=== PATIENT | male | born 1940 ===

== ENCOUNTER 2025-05-11 15:56 | Outpatient (AMB) | payer OTHER, SELFPAY ==
--- NOTE | 2025-05-11 16:01 | A.OFFVIS_ITS ---
Vital Signs 05/11/25 16:05 Height 5 ft 4 in Intake Visit Reasons: 6 mnts BFT Accompanied by: Spouse Allergies No Known Allergies Allergy (Verified 05/11/25 16:10) Medication List - Last Reconciled 05/11/25 by Sabine Fierro CNP empagliflozin (Jardiance) 10 mg PO DAILY glipizide 5 mg PO QAM lisinopril 10 mg PO DAILY metformin 1,000 mg PO BID propranolol 80 mg PO BID simvastatin 20 mg PO QPM HPI Comments Details: 85-year-old man with tremors. He had tremors in his hands for more than 30 years and started with [id number] head tremor around 2023. His father also had tremors. Tremors were about the same. No significant functional impairment. No difficulty eating. He occasionally had to hold cup steady with both hands. Shaking was worse if he was nervous or stressed. He was having some trouble swallowing and had testing done earlier this month at [facility] which was apparently okay. No falls. [facility] Medical History (Updated 05/11/25 @ 16:04 by Sabine Fierro CNP) Benign familial tremor Review of Systems Const Denies chills, Denies daytime sleepiness, Denies difficulty sleeping, Denies fatigue, Denies fever(s), Denies frequent falls, Denies headache(s), Denies increased appetite, Denies poor appetite, Denies snoring, Denies weakness, Denies weight gain and Denies weight loss Eyes Denies loss of vision ENT Denies vertigo, Denies dizziness, Denies headache(s) and Denies neck pain Card Denies chest pain at rest, Denies chest pain with activity, Denies syncope, Denies leg edema, Denies palpitations, Denies dyspnea and Denies dyspnea on exertion Resp Denies cough, Denies dyspnea, Denies dyspnea on exertion and Denies snoring GI Denies abdominal pain, Denies constipation, Denies heartburn, Denies diarrhea and Denies nausea Denies urinary frequency, Denies urinary incontinence and Denies urinary urgency Musc Denies abnormal gait, Denies back pain, Denies myalgias, Denies arthralgias, Denies neck pain, Denies numbness and Denies tingling Neuro Denies abnormal gait, Denies vertigo, Denies dizziness, Denies syncope, Denies frequent falls, Denies headache(s), Denies lack of coordination, Denies loss of vision, Denies memory loss, Denies numbness, Denies Other visual disturbances, Denies restless legs, Denies seizure-like activity, Denies tingling, Denies paresthesias, Reports tremor(s) and Denies weakness Psych Denies anxiety, Denies depression, Denies auditory hallucinations, Denies memory loss and Denies visual hallucinations Endo Denies fatigue and Denies palpitations Physical Exam Const Other: General Appearance:? normal, in no acute distress. Heart:? S1, S2 normal, no murmurs. Lungs:? clear anteriorly and posteriorly. Musculoskeletal:? normal. Extremities:? no edema. Psych:? alert, oriented, cognitive function intact, cooperative with exam. Neuro Other: Abnormal Neurological Findings:?Mild head titubation tremor.?No rest tremor.?Moderate tremor of the upper extremities when held in an extended position.?Fast frequency with medium amplitude tremor right more than left, increased by [id number] test. Mental Status: alert and oriented X 3. Normal attention, orientation, memory, and affect. Cranial Nerves: Pupils are equal, round, and reactive to light. External ocular muscles are intact. Visual nicolas are full, no ptosis. Face is symmetrical, no facial weakness or droop. Facial sensations are normal. Tongue protrudes in midline. Palate elevates symmetrically. Shoulder shrugging is normal Motor Examination: Normal muscle tone, bulk and strength. No atrophy or fasciculations. No drift of the extended upper extremities. DTR 2+. Plantars are flexor. Sensory Exam: Normal light touch, temperature, pinprick, vibration, and joint- position sensations. Rhomberg sign is absent. Gait Exam: Within normal limits. Cerebellar Signs: [id number] as above. Extrapyramidal System: Tremor as above. rigidity with normal facial expressions. No bradykinesia. No bradyphrenia. Normal arm swing and posture. No propulsion or retropulsion. Speech: Normal. No dysphasia or dysarthria. 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 Plan Meds tried: primidone (side effects) Medications: New propranolol 80 mg PO BID 180 tabs 1RF 90 days Discontinued propranolol Discontinued Reason: Order 80 mg PO BID Coding Level of Care Code Est Pt Level 3 (87247) Diagnoses Benign familial tremor G25.0
--- OUTSIDE RECORDS SUMMARY | 2025-05-11 16:35 | XMS_ITS | Clinical Summary ---
Author Organization [address] [facility] Address [address] [place] [address] Phone Care Team Providers Care Email Engineer Name Role Phone Ben Wylie DO Primary Care Provider [phone] Encounters Date Type Department Care Team Description 04/07/2025 7:00 AM EDT Ancillary Procedure [facility] [address] [place] [id number] Ascending aorta dilation (CMS/HCC V24) from Last 3 Months Social History Tobacco Use Types Packs/Day Years Used Date Smoking Tobacco: Never Assessed Sex and Gender Information Value Date Recorded Sex Assigned at Not on file Legal Sex Male 4:20 AM EST Gender Identity Not on file Sexual Orientation Not on file Last Filed Vital Signs Vital Sign Reading Time Taken Comments Blood Pressure 180/90 04/07/2025 7:33 AM EDT Pulse - - Temperature - - Respiratory Rate - - Oxygen Saturation - - Inhaled Oxygen Concentration - - Weight 70.3 kg (155 lb) 04/07/2025 7:33 AM EDT Height 165.1 cm (5' 5 ) 04/07/2025 7:33 AM EDT Body Mass Index 25.79 04/07/2025 7:33 AM EDT Plan of Treatment Health Maintenance Due Date Last Done Comments Diabetes: Annual Foot Exam 01/22/1950 Diabetes: Annual Retina Eye Exam 01/22/1950 DTaP,Tdap,and Td Vaccines (1 - Tdap) 1961 Pneumococcal Vaccine: 50+ Years (1 of 2 - PCV) 1961 Zoster Vaccines (1 of 2) 1961 RSV Immunization Adult Patients (1 - 1-dose 75+ series) 2017 Falls Risk Assessment 10/04/2022 Medicare Annual Wellness Visit 10/04/2022 Social Influencers of Health Screening 10/04/2022 Depression Screening 10/21/2024 COVID-19 Vaccine (8 - Pfizer risk season) 2024 06/21/2024, 08/03/2023, 10/01/2022, Additional history exists Diabetes: Annual Urine Albumin-Creatinine Ratio (uACR) 04/22/2025 Influenza Vaccine (#1) 2025 , 08/15/2023, 08/13/2022, Additional history exists Diabetes: Blood Sugar Control Test (HGBA1C) 10/22/2025 04/21/2025, 12/08/2024 Diabetes: Annual GFR (Glomerular Filtration Rate) 04/21/2026 04/21/2025, 12/08/2024, 09/11/2024 Hypertension/CHF/CAD Annual BMP Blood Test 04/21/2026 04/21/2025, 12/08/2024, 09/11/2024 Cholesterol Screening (Lipid Panel) 04/21/2030 04/21/2025, 12/08/2024 HIB Vaccines Aged Out No longer eligi ble based on patient's age to complete this topic HPV Vaccines Aged Out No longer eligi ble based on patient's age to complete this topic Hepatitis A Vaccines Aged Out No long er eligible based on patient's age to complete this topic Hepatitis B Vaccines Aged Out No long er eligible based on patient's age to complete this topic IPV Vaccines Aged Out No longer eligi ble based on patient's age to complete this topic MMR Vaccines Aged Out No longer eligi ble based on patient's age to complete this topic Meningococcal ACWY Vaccine Aged Out N o longer eligible based on patient's age to complete this topic Meningococcal B Vaccine Aged Out No l onger eligible based on patient's age to complete this topic RSV Immunization Patients Under 20 months Aged Out No longer eligible based on patient's age to complete this topic Varicella Vaccines Aged Out No longer eligible based on patient's age to complete this topic Procedures Procedure Name Priority Date/Time Associated Diagnosis Comments HEMOGLOBIN A1C Routine 04/21/2025 8:07 AM EDT Diabetes mellitus ([facility] V24, [facility] V28) Hyperlipemia Essential hypertension, malignant COMPREHENSIVE METABOLIC PANEL Routine 04/21/2025 8:07 AM EDT Diabetes mellitus ([facility] V24, [facility] V28) Hyperlipemia Essential hypertension, malignant CREATINE KINASE Routine 04/21/2025 8:07 AM EDT Diabetes mellitus ([facility] V24, [facility] V28) Hyperlipemia Essential hypertension, malignant LIPID PANEL WITH REFLEX TO DIRECT LDL Routine 04/21/2025 8:07 AM EDT Diabetes mellitus ([facility] V24, [facility] V28) Hyperlipemia Essential hypertension, malignant TRANSTHORACIC ECHOCARDIOGRAM (TTE) COMPLETE Routine 04/07/2025 7:33 AM EDT Ascending aorta dilation ([facility] V24) from Last 3 Months Results * (ABNORMAL) Lipid panel with reflex to direct LDL (04/21/2025 8:07 AM EDT) Cholesterol 148 0 - 200 mg/dL LAB CHEMISTRY METHOD 04/21/2025 11:49 AM [facility] Triglycerides 228(H) 0 - 150 mg/dL LAB CHEMISTRY METHOD 04/21/2025 11:49 AM [facility] HDL 48 >=40 mg/dL LAB CHEMISTRY METHOD 04/21/2025 11:49 AM [facility] LDL Calculated 54 0 - 100 mg/dL LAB CHEMISTRY METHOD 04/21/2025 11:49 AM [facility] VLDL Cholesterol Mat 45.6 mg/dL LAB CHEMISTRY METHOD 04/21/2025 11:49 AM [facility] Non HDL Chol. (LDL+VLDL) 100 <145 mg/dL LAB CHEMISTRY METHOD 04/21/2025 11:49 AM EDT [facility] Chol/HDL Ratio 3.1 0.0 - 4.4 LAB CHEMISTRY METHOD 04/21/2025 11:49 AM EDT [facility] Blood Venous blood specimen / Unknown Venipuncture / Unknown 04/21/2025 8:07 AM EDT 04/21/2025 8:07 AM EDT us Gisela Barrera NP LAB BLOOD ORDERABLES Fi nal Result Performing Organization Address [facility]/ZIP Co de Phone Number [facility] [address] [place] [address], [place] [phone] * (ABNORMAL) Hemoglobin A1c (04/21/2025 8:07 AM EDT) Hemoglobin A1C 7.4(H) <6.5 % LAB CHEMISTRY METHOD 04/21/2025 1:48 PM EDT [facility] Mean Bld Glu Estim. 166 mg/dL LAB CHEMISTRY METHOD 04/21/2025 1:48 PM EDT [facility] Blood Venous blood specimen / Unknown Venipuncture / Unknown 04/21/2025 8:07 AM EDT 04/21/2025 8:07 AM EDT us Gisela Barrera NP LAB BLOOD ORDERABLES Fi nal Result [facility] [address] [place] [address], [place] [phone] * Creatine kinase (04/21/2025 8:07 AM EDT) Total CK 47 22 - 269 unit/L LAB CHEMISTRY METHOD 04/21/2025 11:49 AM EDT [facility] Blood Venous blood specimen / Unknown Venipuncture / Unknown 04/21/2025 8:07 AM EDT 04/21/2025 8:07 AM EDT us Gisela Barrera [employer] WORKER LAB BLOOD ORDERABLES Fi nal Result [facility] [address] [place] [address], [place] [phone] * (ABNORMAL) Comprehensive metabolic panel (04/21/2025 8:07 AM EDT) Sodium 142 133 - 145 mmol/L LAB CHEMISTRY METHOD 04/21/2025 11:49 AM [facility] Potassium 4.8 3.5 - 5.5 mmol/L LAB CHEMISTRY METHOD 04/21/2025 11:49 AM [facility] Chloride 109 96 - 110 mmol/L LAB CHEMISTRY METHOD 04/21/2025 11:49 AM [facility] CO2 28 21 - 32 mmol/L LAB CHEMISTRY METHOD 04/21/2025 11:49 AM [facility] Anion Gap 5 3 - 11 LAB CHEMISTRY METHOD 04/21/2025 11:49 AM [facility] Glucose 145(H) 70 - 100 mg/dL LAB CHEMISTRY METHOD 04/21/2025 11:49 AM [facility] BUN 16 5 - 25 mg/dL LAB CHEMISTRY METHOD 04/21/2025 11:49 AM [facility] Creatinine 1.24 0.70 - 1.30 mg/dL LAB CHEMISTRY METHOD 04/21/2025 11:49 AM [facility] eGFR 58(L) >=60 mL/min/1. 73m2 LAB CHEMISTRY METHOD 04/21/2025 11:49 AM [facility] Comment:Calculation based on the Chronic Kidney Disease Epidemiology Collaboration (CKD-EPI) equation refit without adjustment for race. BUN/Creatinine Ratio 12.9 LAB CHEMISTRY METHOD 04/21/2025 11:49 AM [facility] Calcium 8.9 8.5 - 10.5 mg/dL LAB CHEMISTRY METHOD 04/21/2025 11:49 AM EDT [facility] AST (SGOT) 12 10 - 42 unit/L LAB CHEMISTRY METHOD [facility] ALT (SGPT[facility] 21 10 - 60 unit/L LAB CHEMISTRY METHOD 04/21/2025 11:49 AM EDT [facility] Alkaline Phosphatase 65 42 - 121 unit/L LAB CHEMISTRY METHOD [facility] Total Protein 6.6 6.0 - 8.0 g/dL LAB CHEMISTRY METHOD 04/21/2025 11:49 AM [facility] Albumin 3.8 3.2 - 5.0 g/dL LAB CHEMISTRY METHOD 04/21/2025 11:49 AM [facility] Total Bilirubin 0.4 0.0 - 1.4 mg/dL LAB CHEMISTRY METHOD 04/21/2025 11:49 AM [facility] Blood Venous blood specimen / Unknown Venipuncture / Unknown 04/21/2025 8:07 AM EDT 04/21/2025 8:07 AM EDT us Gisela Barrera [employer] LAB BLOOD ORDERABLES Fi nal Result [facility] [address] [place] [address], [place] [phone] * (ABNORMAL) TRANSTHORACIC ECHOCARDIOGRAM (TTE) COMPLETE (04/07/2025 7:33 AM EDT) Left Atrium Minor [place] 5.1 cm CV PACS Left Atrium Major [place] 6.3 cm CV PACS LA Area Sys (A2C) 19 cm2 CV PACS LA Area Sys (A4C) 24 cm2 CV PACS LA Volume (BP) 69 mL CV PACS RA Area 15.5 cm2 CV PACS RA 2D Volume 46 mL CV PACS AV Regurgitation PHT 587 ms CV PACS AR Max Velocity 3.7 m/s CV PACS AV Peak Jimy 1.4 m/s CV PACS AV Peak Gradient 7 mmHg CV PACS AV Mean Gradient 4 mmHg CV PACS Ao VTI 30.0 cm CV PACS AV Area Continuity Equation 2.7 cm2 CV PACS AV Area Peak Velocity 2.5 cm2 CV PACS Aortic Sinus Valsalva 3.8 cm CV PACS Ascending Aorta 4.2 cm CV PACS IVC Proximal 1.4 cm CV PACS IVSD 1.0 0.6 - 1.0 cm CV PACS LVIDD 4.7 4.2 - 5.8 cm CV PACS LVIDS 2.9 2.5 - 4.0 cm CV PACS LVOT Diameter 2.1 cm CV PACS LVOT Mean Grad 2 mmHg CV PACS LVOT Peak VTI 23.2 cm CV PACS LVOT Mean Jimy 0.7 m/s CV PACS LVOT Peak Jimy 1.0 m/s CV PACS LVOT Peak Gradient 4 mmHg CV PACS LVPWD 1.0 0.6 - 1.0 cm CV PACS MV E' Tissue Velocity Lateral 7 cm/s CV PACS MV E' Tissue Velocity Septal 4 cm/s CV PACS LVOT Area 3.5 cm2 CV PACS LVOT Stroke Volume 80 mL CV PACS E Wave Deceleration Time 278(A) 119 - 242 ms CV PACS MV Peak A Jimy 0.95 m/s CV PACS MV Peak E Jimy 0.52 m/s CV PACS PV Acceleration Time 127 ms CV PACS PV Peak Velocity 0.9 m/s CV PACS PV Peak Gradient 3 mmHg CV PACS RV Diastolic Basal Dimension 3.2 2.5 - 4.1 cm CV PACS RV S' 13 cm/s CV PACS TAPSE 21 mm CV PACS TR Peak Velocity 2.50 m/s CV PACS TR Peak Gradient 25 mmHg CV PACS E/E' Ratio Septal 13 CV PACS E/E' Ratio Averaged 10 CV PACS LVOT Stroke Index 45 mL/m2 CV PACS Relative Wall Thickness ratio 0.43 CV PACS LVOT:AV VTI Index 0.77 CV PACS FS 38 % CV PACS LV Mass 2D 164 g CV PACS Ascending Aorta Index 2.36 cm/m2 CV PACS LVOT flow 242 mL/s CV PACS RA 2D Volume Index 26 mL/m2 CV PACS TATYANA Index (VTI) 1.50 cm2/m2 CV PACS TATYANA Index (Pk Jimy) 1.40 cm2/m2 CV PACS LVIDD Index 2.64 cm/m2 CV PACS LVIDS Index 1.63 cm/m2 CV PACS AV Velocity Ratio 0.71 CV PACS E/A Ratio 0.5 CV PACS E/E' Ratio Lateral 7 CV PACS LA Volume Index (BP) 39 mL/m2 CV PACS LV Mass Index 2D 92 g/m2 CV PACS BSA 1.8 m2 CV PACS Right Ventricular Peak Systolic Pressure 28 mmHg CV PACS Est. RA Pressure 3 mmHg CV PACS Anatomical Region Laterality Modality Ultrasound Narrative 04/12/2025 12:47 PM EDT LV size and function is normal with an EF of 55 to 60%. RV size and function is normal. Left atrium slightly dilated. Right atrium normal. Trivial aortic insufficiency. The valve appears to be trileaflet. Trace MR. Trace TR. Normal PA pressures. Dilated aorta at the sinuses of Valsalva at 3.8 cm. Dilated ascending aorta at 4.2 cm. No significant change from August 19, 2020 Left Ventricle Left ventricle cavity size is normal. Wall thickness is normal. Systolic function is normal with an ejection fraction of 55-60%. There are no regional LV wall motion abnormalities. Indeterminate diastolic function. Right Ventricle Right ventricle cavity appears normal. Systolic function is normal. Left Atrium Left atrium volume index is mildly increased. Right Atrium Right atrium cavity is normal. IVC/SVC RA pressures is estimated to be 3 mmHg (IVC diameter <21 mm and decreases >50% during inspiration). Mitral Valve The leaflets are mildly thickened. There is trace regurgitation. There is no evidence of mitral valve stenosis. Tricuspid Valve The leaflets exhibit normal excursion. There is trace regurgitation. There is no evidence of tricuspid valve stenosis. The RVSP is estimated at 28 mmHg. Aortic Valve The aortic valve is trileaflet. The leaflets are mildly thickened. There is mild regurgitation. There is no evidence of aortic valve stenosis. Pulmonic Valve Visualized portions of the pulmonic valve appear normal. There is trace pulmonic valve regurgitation. There is no evidence of pulmonic valve stenosis. Ascending Aorta The Sinus of Valsalva is (3.8 cm). The ascending aorta is (4.2 cm). Pericardium Pericardium appears normal. Study Details Overall the study quality was adequate. us Ben Wylie DO CV ECHO PROCEDURES Final Resu lt from Last 3 Months Insurance [employer] Care Teams Email Engineer Relationship Specialty Start Date End Date Ben Wylie DO [address] [place] [phone] PCP - General 08/21/22
== END 2025-05-11 16:14 | disposition home or self-care (01) ==
LOC: HO.HSM 15:56
PROVIDERS: PCP Internal Medicine; Visit Provider Registered Nurse
DX: G25.0 Essential tremor (principal)
CPT/HCPCS: 99213